=== PATIENT | female | born 1950 | race Caucasian/White ===

== ENCOUNTER → 2016-12-10 | Outpatient (CLI) | payer BC ==
--- NOTE | 2016-12-10 16:41 | RAD ---
EXAM DESCRIPTION: Foot,Left 3 Views CLINICAL HISTORY: 66 years Female, chronic left foot pain. No history of trauma. IMPRESSION: 3 views of the left foot reveals degenerative changes within the first MTP joint. Probable osteopenia and thinning cortices. No fracture noted. No plantar spur. Electronically signed by: Jeff Barrett MD 12/10/2016 4:40 PM CDT
== END | disposition home or self-care (01) ==
LOC: RAD 09:13
PROVIDERS: ATTEND Orthopaedic Surgery
DX: M79.672 Pain in left foot (principal)

== ENCOUNTER → 2016-12-16 | Outpatient (CLI) | payer BC ==
--- NOTE | 2016-12-17 08:32 | RAD ---
EXAM DESCRIPTION: Foot,Left 3 Views CLINICAL HISTORY: SPRAIN OF FOOT FINDINGS/ IMPRESSION: Comparison 12/10/2016 Osteopenia. No acute fracture of the metatarsals or phalanges. 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 There is a well-corticated calcification along the dorsal talar head neck junction which was not seen on the prior study. This is probably projectional as opposed to an acute avulsion given the slightly different degree of obliquity. No diagnostic acute bony abnormality Electronically signed by: Jesus Tyler MD 12/17/2016 8:31 AM CDT
== END | disposition home or self-care (01) ==
LOC: RAD 14:04
PROVIDERS: ATTEND Orthopaedic Surgery
DX: S93.602D Unspecified sprain of left foot, subsequent encounter (principal); X58.XXXA Exposure to other specified factors, initial encounter

== ENCOUNTER → 2017-03-24 | Outpatient (CLI) | payer BC | END | disposition home or self-care (01) | LOC: GMAM 12:03 | PROVIDERS: ATTEND Family Medicine | DX: E03.9 Hypothyroidism, unspecified (principal) ==

== ENCOUNTER → 2017-11-01 | Outpatient (CLI) | payer BC | LOC: GMAM 10:22 | PROVIDERS: ATTEND Family Medicine | DX: E03.9 Hypothyroidism, unspecified (principal) ==

== ENCOUNTER → 2017-11-18 | Outpatient (CLI) | payer BC, MEDICARE ==
--- NOTE | 2017-11-18 09:16 | RAD ---
EXAM DESCRIPTION: Foot,Left 3 Views CLINICAL HISTORY: 67 years, Female, NONDISPLACED FX OF THIRD METATARSAL BONE COMPARISON: Previous x-rays of the left foot December 16, 2016 TECHNIQUE: AP, lateral, and oblique views of the left foot FINDINGS: Callus formation is seen around fractured distal diaphysis of the left third metatarsal. There is slight impaction in the distal fracture fragment is displaced slightly dorsally and medially. This fracture was not present on the previous study. Degenerative changes are seen at the first metatarsal phalangeal joint. Degenerative narrowing of the joints the toes is seen. Lateral view shows small well-corticated bone fragments of the dorsum of the talar head and neck and navicular suggesting old trauma. Prominent calcaneal enthesophyte is present. No mid foot malalignment. Bones appear osteopenic with prominent trabecular pattern. There is no radiopaque foreign body. IMPRESSION: Callus formation around healing fracture of the distal left third metatarsal. Electronically signed by: Boni Wright MD 11/18/2017 9:15 AM [facility]
== END ==
LOC: RAD 07:37
PROVIDERS: ATTEND Orthopaedic Surgery
DX: S92.335A Nondisplaced fracture of third metatarsal bone, left foot, initial encounter for closed fracture (principal)

== ENCOUNTER → 2017-12-17 | Outpatient (CLI) | payer BC, MEDICARE ==
--- NOTE | 2017-12-17 10:05 | RAD ---
LEFT FOOT HISTORY: CLOSED FX OF METATARSAL BONE S92.302D COMPARISON: November 18, 2017 FINDINGS: Suboptimal image quality due to diffuse osteopenia Three views of foot demonstrate anatomic bony alignment. Pronounced callus formation around distal third metatarsal consistent with prior mildly angulated fracture. Underlying fracture lying is slightly more obscured since prior study. No acute fracture nor dislocation nor inflammatory bony erosion is identified. Joint spaces are maintained. No soft tissue abnormality is seen. IMPRESSION: Suboptimal study. Healing prior fracture in the third metatarsal. No new bony injury identified in left foot. Electronically signed by: Miko Escudero MD 12/17/2017 10:04 AM CDT
== END | disposition home or self-care (01) ==
LOC: RAD 07:42
PROVIDERS: ATTEND Orthopaedic Surgery
DX: S92.302D Fracture of unspecified metatarsal bone(s), left foot, subsequent encounter for fracture with routine healing (principal)

== ENCOUNTER → 2018-06-08 | Outpatient (CLI) | payer BC, MEDICARE | LOC: GMAM 10:56 | PROVIDERS: ATTEND Family Medicine | DX: E03.9 Hypothyroidism, unspecified (principal); I10 Essential (primary) hypertension ==

== ENCOUNTER → 2019-03-15 | Outpatient (CLI) | payer BC, MEDICARE | LOC: GMAM 10:45 | PROVIDERS: ATTEND Family Medicine | DX: E03.9 Hypothyroidism, unspecified (principal); I10 Essential (primary) hypertension ==

== ENCOUNTER → 2019-03-21 | Outpatient (CLI) | payer BC, MEDICARE | LOC: GMAM 15:03 | PROVIDERS: ATTEND Family Medicine | DX: D53.9 Nutritional anemia, unspecified (principal) ==

== ENCOUNTER → 2020-02-27 | Outpatient (CLI) | payer BC, MEDICARE | LOC: GMAM 10:59 | PROVIDERS: ATTEND Family Medicine | DX: E03.9 Hypothyroidism, unspecified (principal) ==